=== PATIENT | female | born 1980 | race Caucasian/White ===

== ENCOUNTER 2018-07-24 18:03 | Observation (INO) ==
[2018-07-24 19:14] LABS: Basophils # 0.1 K/mcL (0.0-0.2); Basophils % 0.4 %; Eosinophils # 0.1 K/mcL (0.0-0.6); Eosinophils % 0.9 %; Hematocrit 48.9 % (35.3-44.9); Hemoglobin 17.1 g/dL (11.5-15.4); Immature Granulocytes % 0.3 % (0-4); Lymphocytes # 3.7 K/mcL (0.6-4.6); Lymphocytes % 27.9 %; Mean Corpuscular Hemoglobin 31.5 pg (28.0-33.3); Mean Corpuscular Volume 90.2 fL (83.0-100.0); Mean Platelet Volume 9.7 fL (9.4-12.4); Monocytes % 7.6 %; Neutrophils # 8.3 K/mcL (1.6-8.9); Platelet Count 335 K/mcL (140-400); Red Blood Count 5.42 M/mcL (3.82-4.97); Red Cell Distribution Width 12.6 % (11.5-14.5); Segmented Neutrophils % 62.9 %
[2018-07-24] MEDS ORDERED: 0.9 % Sodium Chloride 1,000 ML IVC ONE (19:23)
--- NOTE | 2018-07-24 19:27 | Emergency Department Note ---
Disposition Clinical Impression: Symptomatic tachycardia, Chest pain Disposition: Admitted As Inpatient Referrals: Royce Aceves MD [Primary Care Provider] - Forms: ED Satisfaction Letter General Adult HPI - General Chief complaint: ED Chest Pain Stated complaint: "CP,high heart rate sent by Jake SERRANO" Time Seen by Provider: 07/24/18 18:42 - History of Present Illness Pain Scale: 2 - Related Data Home Medications Medication Instructions Recorded Confirmed Thyroid,Pork [[place] Thyroid] 120 mg PO DAILY 02/25/16 12/02/16 diazePAM [Valium] 5 mg PO BID PRN 02/25/16 12/02/16 HYDROcodone/Acet 5/325 mg [[place] 1 tab PO Q6H PRN 12/02/16 12/02/16 5-325 mg] Lactobacillus Combination No.8 1 tab PO DAILY 12/02/16 12/02/16 [Adult Probiotic] Omeprazole [PriLOSEC] 40 mg PO DAILY 12/02/16 12/02/16 Ondansetron HCl 4 - 8 mg PO Q8H PRN 12/02/16 12/02/16 raNITIdine HCl [Zantac] 150 mg PO DAILY 12/02/16 12/02/16 Previous Rx's Medication Instructions Recorded Lisinopril [Zestril] 5 mg PO DAILY tablet 02/26/16 Allergies Allergy/AdvReac Type Severity Reaction Status Date / Time Labetalol AdvReac See Verified 07/24/18 18:24 Comments nifedipine [From Procardia] AdvReac See Verified 07/24/18 18:24 Comments tramadol AdvReac See Verified 07/24/18 18:24 Comments Past Medical History - Past Medical History Medical history: Reports: hypertension, seizures, thyroid disease, other Surgical history: Reports: hysterectomy, orthopedic, other, thyroidectomy, other Psychiatric history: Reports: anxiety - Social History Smoking Status: Former smoker Smokeless Tobacco Status: No Alcohol use: Reports: none Drug use: Reports: none Physical Exam - General General appearance: alert, in no apparent distress Course Vital Signs Temperature 99.1 F 07/24/18 18:23 Pulse Rate 126 07/24/18 18:23 Respiratory Rate 16 07/24/18 18:23 Blood Pressure 130/90 07/24/18 18:23 O2 Sat by Pulse Oximetry 100 07/24/18 18:23 Temperature 99.1 F 07/24/18 18:44 Pulse Rate 104 07/24/18 20:34 Respiratory Rate 16 07/24/18 20:34 Blood Pressure 140/109 07/24/18 20:34 O2 Sat by Pulse Oximetry 100 07/24/18 20:34 Oxygen Delivery Oxygen Delivery Room Air Medical Decision Making - MDM Narrative Medical decision making narrative: Patient doing better after metoprolol. This did bring her heart rate down. We will admit her for chest pain workup as well. The case was discussed with the hospitalist. - Medical Records Medical records reviewed: Yes I reviewed the patient's medical records. - Lab Data Lab results reviewed: Yes I reviewed the patient's lab results. Result diagrams: 07/24/18 18:57 07/24/18 18:57 Lab Results 07/24/18 07/24/18 07/24/18 Range/Units 18:57 18:57 19:23 WBC 13.1 H (4.3-11.1) K/mcL RBC 5.42 H (3.82-4.97) M/mcL Hgb 17.1 H (11.5-15.4) g/dL Hct 48.9 H (35.3-44.9) % MCV 90.2 (83.0-100.0) fL MCH 31.5 (28.0-33.3) pg MCHC 35.0 (31.6-35.5) g/dL RDW 12.6 (11.5-14.5) % Plt Count 335 (140-400) K/mcL MPV 9.7 (9.4-12.4) fL Immature Gran % 0.3 (0-4) % Seg Neutrophils % 62.9 % Lymphocytes % 27.9 % Monocytes % 7.6 % Eosinophils % 0.9 % Basophils % 0.4 % Neutrophils # 8.3 (1.6-8.9) K/mcL Lymphocytes # 3.7 (0.6-4.6) K/mcL Monocytes # 1.0 (0.0-1.3) K/mcL Eosinophils # 0.1 (0.0-0.6) K/mcL Basophils # 0.1 (0.0-0.2) K/mcL D-Dimer 321 (0-500) ng/mLFEU Sodium 139 (136-145) mEq/L Potassium 3.6 (3.5-5.1) mEq/L Chloride 101 (98-107) mEq/L Carbon Dioxide 26 (23-29) mEq/L BUN 16 (6-20) mg/dL Creatinine 0.88 (0.60-1.20) mg/dL Est GFR ( Amer) > 60 (> 60) Est GFR (Non-Af Amer) > 60 (> 60) BUN/Creatinine Ratio 18 (6-26) Glucose 116 H (70-105) mg/dL Calculated Osmolality 290 (280-300) Calcium 10.3 (8.6-10.3) mg/dL Troponin I < 0.03 (< 0.04) ng/mL TSH 3.004 (0.340-5.600) mcIU/mL - Radiology Data Radiology results reviewed: Yes I reviewed the patient's radiology results. Attestation Statement - Attestation Attestation: I examined this patient and my medical decision-making was reviewed with the Resident Physician. I agree with the documented findings, disposition and treatment plan as described except to the extent set forth below. 38-year-old female presents emergency of tachycardia. She states is been getting worse over the past month. Worse over the past 24-48 hours for heart rates been severely elevated. She feels palpitations at times. She states she has a history of thyroid problems but had her thyroid checked this morning and it was normal. He is not having any active chest pain. No lower leg pain or swelling. No history of DVT or PE. She has no history of coronary artery disease. She denies any supplement use. No excess caffeine intake. She denies fevers or chills. No vomiting. No new medications. She has been compliant with her blood pressure medication. She takes an CAITLIN inhibitor for that.
[2018-07-24] MEDS ORDERED: *HR* Metoprolol 5 MG/5 ML VIAL IVP ONE (19:39)
[2018-07-24 19:40] LABS: BUN/Creatinine Ratio 18 (6-26); Blood Urea Nitrogen 16 mg/dL (6-20); Calcium 10.3 mg/dL (8.6-10.3); Carbon Dioxide 26 mEq/L (23-29); Chloride 101 mEq/L (98-107); Glucose 116 mg/dL (70-105); Osmolality,Calculated 290 (280-300); Potassium 3.6 mEq/L (3.5-5.1); Sodium 139 mEq/L (136-145); Troponin I < 0.03 ng/mL (< 0.04); eGFR For Non-African Americans > 60 (> 60)
[2018-07-24 19:54] LABS: Thyroid Stimulating Hormone 3.004 mcIU/mL (0.340-5.600)
--- NOTE | 2018-07-24 19:55 | Emergency Department Note ---
Disposition Clinical Impression: Chest pain Disposition: Still a Patient Condition: Good Referrals: Royce Aceves MD [Primary Care Provider] - Forms: ED Satisfaction Letter Chest Pain HPI - General Chief Complaint: ED Chest Pain Stated Complaint: "CP,high heart rate sent by Jake SERRANO" Time Seen by Provider: 07/24/18 18:42 - History of Present Illness HPI Narrative: 38 YO F here for CP and tachycardia with a history of tachycardic episodes, hypertension, and anxiety. She states symptoms started 1 month ago with her heart rate starting in AM at 100 and increasing to 140s by the end of the day. She states that she has mildly crushing CP which is rated a 2/10, increases with exertion, and present at rest. She has been taking valium 2x a day for the past 2 weeks to decrease her heart rate. She was perscribed the valium by her PCP. Patient states she has had a previous episode of tachy 9 years ago after her when she was given labetolol to decrease her heart rate. She states she has had episodes of arrthymias, which were undiagnosed after several holter monitor trials. She has a family history of heart disease in her mother and sister - both unknown etiology. Onset (ago): week(s) Severity scale (1-10): 2 - Related Data Home Medications Medication Instructions Recorded Confirmed Thyroid,Pork [[place] Thyroid] 120 mg PO DAILY 02/25/16 12/02/16 diazePAM [Valium] 5 mg PO BID PRN 02/25/16 12/02/16 Previous Rx's Medication Instructions Recorded Lisinopril [Zestril] 5 mg PO DAILY tablet 02/26/16 Allergies Allergy/AdvReac Type Severity Reaction Status Date / Time Labetalol AdvReac See Verified 07/24/18 20:39 Comments nifedipine [From Procardia] AdvReac See Verified 07/24/18 20:39 Comments tramadol AdvReac See Verified 07/24/18 20:39 Comments Review of Systems: 38 YO F presenting with CP with history of tachycardic episodes and hypertensionm, and anxiety. She started have elevated heart rate for the past month. She notices the heart rate starts at 100 and as the day gets longer goes up to the 140-150s. She is on Constitutional: Denies: fever, chills, weakness Cardiovascular: Reports: chest pain, palpitations, dyspnea on exertion. Denies : orthopnea, edema, syncope, paroxysmal nocturnal dyspnea, other Respiratory: Denies: cough, dyspnea, wheezes, hemoptysis, sputum production Genitourinary: Denies: urgency, dysuria, frequency, hematuria, abnormal menses, dyspareunia Neurological: Denies: headache, weakness Psychiatric: Reports: anxiety. Denies: depression, suicidal thoughts Chest Pain PMH - Past Medical History Medical history: Reports: hypertension, seizures, thyroid disease, other Surgical history: Reports: hysterectomy, orthopedic, other, thyroidectomy, other Psychiatric history: Reports: anxiety - Social History Smoking Status: Former smoker Alcohol use: Reports: none Drug use: Reports: none Physical Exam - General General appearance: alert, in no apparent distress - Head Head exam: atraumatic, normocephalic - Chest Chest inspection: Present: normal inspection, symmetric chest wall rise - Respiratory Respiratory exam: Present: normal lung sounds bilaterally. Absent: wheezes, stridor, accessory muscle use - Cardiovascular Cardiovascular exam: Present: normal rhythm, tachycardia, normal heart sounds. Absent: regular rate - Abdominal Exam Abdominal exam: Present: soft, Non-Tender. Absent: distention, guarding - Neurological Exam Neurological exam: Present: alert, oriented X3, CN II-XII intact - Psychiatric Psychiatric exam: Present: normal affect, normal mood Course Course Narrative: 38 YO F presenting with tachycardia and CP that is described as crushing. - Given metorpolol to decrease the heart rate. - Reevaluation(s) Reevaluation #1: 38 YO F presenting with tachycardia and C - Ordered CXR, d-dimer, - given metropolol to decrase heart rate Reevaluation #2: Troponins negative - d-dimer negative - not PE - CXR normal Reevaluation #3: Dr. Garner spoke with hospitalists and they are okay to admit her. Vital Signs Temperature 99.1 F 07/24/18 18:23 Pulse Rate 126 07/24/18 18:23 Respiratory Rate 16 07/24/18 18:23 Blood Pressure 130/90 07/24/18 18:23 O2 Sat by Pulse Oximetry 100 07/24/18 18:23 Temperature 99.1 F 07/24/18 18:44 Pulse Rate 99 07/24/18 19:59 Respiratory Rate 14 07/24/18 19:59 Blood Pressure 123/102 07/24/18 19:59 O2 Sat by Pulse Oximetry 100 07/24/18 19:59 Oxygen Delivery Oxygen Delivery Room Air Chest Pain - Lab Data Result diagrams: 07/24/18 18:57 07/24/18 18:57 Lab Results 07/24/18 07/24/18 07/24/18 Range/Units 18:57 18:57 19:23 WBC 13.1 H (4.3-11.1) K/mcL RBC 5.42 H (3.82-4.97) M/mcL Hgb 17.1 H (11.5-15.4) g/dL Hct 48.9 H (35.3-44.9) % MCV 90.2 (83.0-100.0) fL MCH 31.5 (28.0-33.3) pg MCHC 35.0 (31.6-35.5) g/dL RDW 12.6 (11.5-14.5) % Plt Count 335 (140-400) K/mcL MPV 9.7 (9.4-12.4) fL Immature Gran % 0.3 (0-4) % Seg Neutrophils % 62.9 % Lymphocytes % 27.9 % Monocytes % 7.6 % Eosinophils % 0.9 % Basophils % 0.4 % Neutrophils # 8.3 (1.6-8.9) K/mcL Lymphocytes # 3.7 (0.6-4.6) K/mcL Monocytes # 1.0 (0.0-1.3) K/mcL Eosinophils # 0.1 (0.0-0.6) K/mcL Basophils # 0.1 (0.0-0.2) K/mcL D-Dimer 321 (0-500) ng/mLFEU Sodium 139 (136-145) mEq/L Potassium 3.6 (3.5-5.1) mEq/L Chloride 101 (98-107) mEq/L Carbon Dioxide 26 (23-29) mEq/L BUN 16 (6-20) mg/dL Creatinine 0.88 (0.60-1.20) mg/dL Est GFR ( Amer) > 60 (> 60) Est GFR (Non-Af Amer) > 60 (> 60) BUN/Creatinine Ratio 18 (6-26) Glucose 116 H (70-105) mg/dL Calculated Osmolality 290 (280-300) Calcium 10.3 (8.6-10.3) mg/dL Troponin I < 0.03 (< 0.04) ng/mL TSH 3.004 (0.340-5.600) mcIU/mL - EKG Data EKG attestation: Yes I reviewed and interpreted this EKG. EKG shows normal: axis, intervals, QRS complexes Rate: tachycardia (aaZ) [place]/QRS: normal
[2018-07-25] MEDS ORDERED: diazePAM 5 MG TABLET PO ONE (01:40)
[2018-07-25] MEDS ORDERED: Naloxone 0.4 MG/ML INJ IVP PRN (09:39)
[2018-07-25] MEDS ORDERED: diazePAM 5 MG TABLET PO PRN (12:42)
--- NOTE | 2018-07-25 13:25 | Internal Med History&Physical ---
Date of Encounter: 07/25/18 Time of Encounter: 11:00 Internal Medicine - H&P: HPI Chief complaint: Chest pain and rapid heart rate Admitted From: Home Plans for Post Hospital Care: Home History of present illness: Ms. Romeo is a 38 year old female who presented to the ER with complaints of chest pain and rapid heart rate. The patient has a history of anxiety and hypothyroidism for which she takes [place] Thyroid and has been complaining of heart palpitations and a rapid heart rate over the last several weeks. It got to a point that she noticed her heart rate was hovering in the 100-140 range and she decided to come to the hospital. She states that she had chest pain which was 3-4/10 in severity described as substernal heaviness is did not radiate to her left arm. This was nonexertional and episodic. The patient has significant anxiety issues and is going through a social stress as well. She also tells me that she has had an increase in her appetite, deprivation of her sleep, no increase in her weight, no voice changes or significant increase in anxiety and she attributes this to her social stressors. She has been taking [place] Thyroid for almost a year and has no changes recently. In the ER patient had a troponin which was negative and EKG showed sinus tachycardia without any atrial fibrillation. She has been placed on observation unit for the same. She also got a dose of metoprolol which increased her heart rate to the low 90s but then at the time of my examination it is up in the 100s. At the time of my examination she denies any chest pain at this point. Past Med Surg Social Fam HX - Past Medical History Medical history: hypertension, seizures, thyroid disease, other Additional medical history: rheumatic fever as a child, tremors/numbness Psychiatric history: anxiety - Past Surgical History Surgical History: hysterectomy, orthopedic, other, thyroidectomy, other Additional surgical history: tonsillectomy - Social History Smoking Status: Former smoker Smokeless Tobacco Status: No Alcohol use: none Drug use: none Internal Medicine - H&P: Meds Thyroid,Pork [[place] Thyroid] 120 mg PO DAILY 02/25/16 [History] diazePAM [Valium] 5 mg PO BID PRN 02/25/16 [History] Lisinopril [Zestril] 5 mg PO DAILY tablet 02/26/16 [Rx] 3 Allergy/AdvReac Type Severity Reaction Status Date / Time Labetalol AdvReac See Verified 07/24/18 20:39 Comments nifedipine [From Procardia] AdvReac See Verified 07/24/18 20:39 Comments tramadol AdvReac See Verified 07/24/18 20:39 Comments All Systems PM: A 10-system review of systems was performed and is negative for pertinent findings except as documented above in the HPI. - Constitutional Vitals: Temp Pulse Resp BP Pulse Ox 98.1 F 109 15 133/82 100 07/25/18 10:20 07/25/18 10:20 07/25/18 10:20 07/25/18 10:20 07/25/18 10:20 Exam: GENERAL: Alert, moderate distress, cooperative EYES: PERRLA, EOMI EARS: External ears normal, canals clear OROPHARYNX: Lips, mucosa, and tongue normal. Teeth and gums normal. Oropharynx normal. NECK: No jugulovenous distention, No carotid bruits, Carotid pulse normal contour, Supple LUNGS: Lungs clear to auscultation, Good diaphragmatic excursion CARDIAC: Tachycardia but no murmurs rubs or gallops. ABDOMEN: Abdomen soft, non-tender, BS normal, No masses or organomegaly EXTREMITIES: Extremities normal, no deformities, edema, clubbing or skin discoloration. Good capillary refill., No ulcers NEURO: Gait normal. Reflexes normal and symmetric. Sensation grossly intact, Cranial nerves II-XII intact PULSES: 2+ radial, 2+ carotid Rest of the exam is non contributory Internal Med - H&P Results - Labs CBC & Chem 7: 07/24/18 18:57 07/24/18 18:57 Labs: Cardiac Enzymes 07/25/18 Range/Units 09:57 Troponin I < 0.03 (< 0.04) ng/mL - EKG Data Prior EKG available for review: no (Tachycardia) - Assessment and plan (1) Chest pain Current Visit: Yes Status: Acute Assessment and plan: Place on telemetry monitoring. Check serial cardiac enzymes. Will need to rule out acute coronary syndrome. Initial EKG is not suggestive of ischemia. Serial troponins so far have been negative. Most likely noncardiac related chest pain with an anxiety component. We will continue anxiolytics and consider treatment or prophylaxis for reflux Qualifiers: Chest pain type: precordial pain Qualified Code(s): R07.2 - Precordial pain (2) History of hypothyroidism Current Visit: Yes Status: Acute Assessment and plan: TSH has been checked and has been reported at 3. Before she was started on an armor thyroid TSH was 88. I am worried if we are over correcting her and her armor thyroid is responsible for all her symptoms of hyperthyroid excess. Regardless I will either determination of decreasing her dosing to the outpatient provider. I will offer symptomatic treatment with beta blockers especially metoprolol to which she already had a favorable response in the ER. (3) Symptomatic tachycardia Current Visit: Yes Status: Acute Assessment and plan: I will continue beta blockers while on the floor because she appeared to have response in the ER. We will continue to monitor in house today and if symptoms are better then we will discharge with low-dose beta blockade at home and follow -up with outpatient primary care physician. She will need to have an evaluation within a week of her TSH levels and consider dose adjusting Rice Thyroid if needed. - Time Spent With Patient Total time spent is greater than 50% in coordination of care (as documented) at patient's floor/unit and/or counseling patient: 25 - 35 minutes
[2018-07-25] MEDS ORDERED: Acetaminophen 325 MG TABLET PO PRN (18:18)
[2018-07-26 04:41] LABS: Hematocrit 41.5 % (35.3-44.9); Mean Corpuscular HGB Conc 34.2 g/dL (31.6-35.5); Mean Corpuscular Hemoglobin 31.3 pg (28.0-33.3); Mean Corpuscular Volume 91.4 fL (83.0-100.0); Mean Platelet Volume 9.7 fL (9.4-12.4); Platelet Count 278 K/mcL (140-400); Red Blood Count 4.54 M/mcL (3.82-4.97); Red Cell Distribution Width 12.4 % (11.5-14.5)
[2018-07-26 04:54] LABS: Hemoglobin 14.2 g/dL (11.5-15.4)
[2018-07-26 04:55] LABS: BUN/Creatinine Ratio 19 (6-26); Blood Urea Nitrogen 14 mg/dL (6-20); Calcium 9.1 mg/dL (8.6-10.3); Carbon Dioxide 26 mEq/L (23-29); Chloride 107 mEq/L (98-107); Glucose 95 mg/dL (70-105); Osmolality,Calculated 288 (280-300); Potassium 3.6 mEq/L (3.5-5.1); Sodium 139 mEq/L (136-145); eGFR For Non-African Americans > 60 (> 60)
[2018-07-26] MEDS ORDERED: Thyroid (Amour) 30 MG TABLET PO SCH (09:00)
[2018-07-26 10:08] VITALS: BP 121/81
--- NOTE | 2018-07-26 10:27 | Discharge Summary ---
- NOTES TO OUTPATIENT PROVIDER Notes to Outpatient Provider: Patient with history of hypothyroidism was admitted for symptomatically tachycardia. EKG showing sinus tach. Given that she is symptomatic, she will be discharged on metoprolol 50mg BID. Of note, her TSH was noted to have normalized from 88 to 3.5 in a period of 1 month ? tachycardia attributed to [place] Thyroid that she is taking. Defer further titration of dosing to PCP. Date of Encounter: 07/26/18 Time of Encounter: 08:30 - Discharge Diagnosis (1) Symptomatic tachycardia Priority: Primary Status: Acute (2) Chest pain Priority: Secondary Status: Acute Qualifiers: Chest pain type: precordial pain Qualified Code(s): R07.2 - Precordial pain (3) History of hypothyroidism Priority: Secondary Status: Acute Hospital course: Ms. Romeo is a 38 year old female with history of hypothyroidism was admitted for symptomatic tachycardia. EKG showing sinus tach, troponin -ve x 2. Given that she is symptomatic, she will be discharged on metoprolol 50mg BID. Of note , her TSH was noted to have normalized from 88 to 3.5 in 1 month ? overcorrection partially responsible for tachycardia. Will defer further titration of dosing to PCP and emphasized the importance of follow up to the patient as well. Discharge discussed with: patient - Time Spent with Patient Total time spent providing and/or coordinating discharge services: Greater than 30 minutes - Discharge Medications Prescriptions: Metoprolol [Lopressor] 50 mg PO BID #60 tablet Home Medications: Thyroid,Pork [[place] Thyroid] 120 mg PO DAILY 02/25/16 [History] diazePAM [Valium] 5 mg PO BID PRN 02/25/16 [History] Lisinopril [Zestril] 5 mg PO DAILY tablet 02/26/16 [Rx] Metoprolol [Lopressor] 50 mg PO BID #60 tablet 07/26/18 [Rx] Allergies/Adverse Reactions: 3 Allergy/AdvReac Type Severity Reaction Status Date / Time Labetalol AdvReac See Verified 07/24/18 20:39 Comments nifedipine [From Procardia] AdvReac See Verified 07/24/18 20:39 Comments tramadol AdvReac See Verified 07/24/18 20:39 Comments Date of admission: 07/25/18 00:20 Primary care physician: Royce Aceves MD - Constitutional Vitals: Temp Pulse Resp BP Pulse Ox 97.6 F 123 15 121/81 100 07/26/18 10:07 07/26/18 10:07 07/26/18 10:07 07/26/18 10:07 07/26/18 10:07 Exam: GENERAL: Alert, not in distress LUNGS: Lungs clear to auscultation, Good diaphragmatic excursion CARDIAC: normal rate and rhythm, no murmur ABDOMEN: Abdomen soft, non-tender, BS normal, No masses or organomegaly EXTREMITIES: Extremities normal, no deformities, edema, clubbing or skin discoloration. Good capillary refill., No ulcers - Patient Status Disposition: Home, Self-Care Condition: Good - Discharge Instructions Follow Up With: Royce Aceves MD [Primary Care Provider] - Additional Instructions: Follow up with PCP for further titration of thyroid meds - Diet and Activity Activity: resume usual activities as tolerated Diet: regular diet
--- NOTE | 2018-07-27 15:57 | Electrocardiograph Report ---
[address] [place] [address] Test Date: 2018-07-24 Pat Name: Mayank Romeo Department: [id number] Room: 3A23 Gender: F Manager Banquet: : 1980 Requested By: Manny Shannon Order Number: [id number] Reading MD: Jennifer Gamboa Measurements Intervals [place] Rate: 112 P: 79 SD: 129 QRS: 77 QRSD: 94 T: 59 QT: 348 QTc: 475 Interpretive Statements Sinus tachycardia Abnormal R-wave progression, early transition Electronically Signed On 07-27-2018 15:55:57 EDT by Jennifer Gamboa
--- NOTE | 2018-07-27 17:58 | Electrocardiograph Report ---
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
== END 2018-07-26 12:47 | disposition home or self-care (01) ==
LOC: EMEROOARM 18:03 → 3ANU 18:03 → SUATTDRO 07-25 00:20 → 3ANU 07-25 01:06
PROVIDERS: ADMIT Internal Medicine; ATTEND Internal Medicine